=== PATIENT | female | born 1990 | race Caucasian/White ===

== ENCOUNTER → 2016-11-09 | Outpatient (CLI) | payer OTHER ==
--- NOTE | 2016-11-09 23:40 | DIREP ---
PROCEDURE:XRAY FOOT MIN 3 VWS-RT COMPARISON:None. INDICATIONS:BUNNION, POSSIBLE ARTHRITIS FINDINGS: BONES:Normal. JOINTS:Lisfranc alignment within normal limits. SOFT TISSUES:Normal. OTHER:No additional findings. CONCLUSION:No acute osseous or joint space abnormality seen. Dictated by: Tim Fuentes M.D. on 11/09/2016 at 11:38 PM
--- NOTE | 2016-11-10 00:10 | DIREP ---
PROCEDURE:XRAY FOOT MIN 3 VWS-LT COMPARISON:[facility], , XRAY FOOT MIN 3 VWS-RT, 11/09/2016, 04:32 PM. INDICATIONS:BUNNION, POSSIBLE ARTHRITIS FINDINGS: BONES:Normal. JOINTS:Normal. SOFT TISSUES:Normal. OTHER:No additional findings. CONCLUSION:Normal examination. Dictated by: Vianney Kerr M.D. on 11/10/2016 at 00:09 AM
== END | disposition home or self-care (01) ==
LOC: RAD 16:31
PROVIDERS: ATTEND Nurse Practitioner Family
DX: M21.611 Bunion of right foot (principal); M21.612 Bunion of left foot
CPT/HCPCS: 73630-LT; 73630-RT